=== PATIENT | female | born 1970 | race Caucasian/White ===

== ENCOUNTER 2020-08-11 16:05 | Inpatient (IN) ==
[2020-08-11 16:58] LABS: Basophils % 0.6 % (0.0-0.8); Eosinophils # 0.2 10*3/uL (0.0-0.87); Eosinophils % 2.2 % (0.00-10.9); Hematocrit 41.5 VOL% (35.7-47.0); Hemoglobin 12.8 GM/DL (12.0-16.0); Immature Granulocytes % 0.3 %; Immature Granulocytes Absolute 0.02 #; Lymphocytes # 1.9 10*3/uL (1.4-4.0); Lymphocytes % 26.7 % (21.3-54.2); Mean Corpuscular HGB Conc 30.8 GM/DL (32-36); Mean Corpuscular Volume 101.7 FL (87-102); Mean Platelet Volume 12.1 FL (9.6-12.0); Monocytes % 9.1 % (1.7-12.7); Neutrophils % 61.1 % (38.7-73.9); Platelet Count 222 T/CUMM (130-400); Red Blood Count 4.08 MC/CUMM (3.8-5.5); Red Cell Distribution Width 13.7 % (9.3-17.3); White Blood Count 6.9 T/CUMM (4-12)
[2020-08-11 17:09] LABS: INR 1.1; Partial Thromboplastin Time 34.4 SECS (23.9-33.8)
[2020-08-11 17:22] LABS: Bacteria,Urine Few /HPF (Few); Bilirubin,Urine Negative (Negative); Blood, Urine Small mg/dL (Negative); Glucose,Urine (UA) Negative (Negative); Ketones,Urine Negative (Negative); Nitrite,Urine Positive (Negative); Protein,Urine Negative; RBC,Urine 18 /HPF (0-4); Squamous Epithelial Cell,Urine Occasional /HPF (0-10); Urine Appearance CLOUDY (Clear); Urine Color Yellow (Yellow); Urine Specific Gravity 1.015 (1.001-1.035); Urine Urobilinogen < 2.0 EU/DL (0.2-1.0); WBC,Urine 1194 /HPF (0-6)
[2020-08-11 17:23] LABS: Alanine Aminotransferase 32 U/L (13-56); Albumin 3.2 G/DL (3.4-5.0); Alkaline Phosphatase 87 U/L (45-117); Aspartate Amino Transferase 38 U/L (0-37); Bilirubin,Total < 0.39 MG/DL (0.2-1.0); Blood Urea Nitrogen 41 MG/DL (7-18); Calcium 9.3 MG/DL (8.5-10.1); Carbon Dioxide 43 MMOL/L (21-32); Estimated Glom Filtration Rate 68 ML/MIN; Glucose 99 MG/DL (74-106); Osmolality,Calculated 284.7 MOS/KG (273-304); Potassium 3.9 MMOL/L (3.5-5.1); Sodium 138 MMOL/L (136-145); Total Protein 7.8 G/DL (6.4-8.3)
[2020-08-11 17:46] LABS: Barbiturates Screen,Urine Negative (Negative); Benzodiazepines Screen,Urine Positive (Negative); Cannabinoid Screen,Urine Negative (Negative); Opiate Screen,Urine Negative (Negative); Phencyclidine Screen,Urine Negative (Negative)
[2020-08-11 17:52] LABS: Troponin I < 0.015 NG/ML (0.00-0.045)
[2020-08-11 18:32] LABS: ABG Base Excess 15.7 MMOL/L (-2.5-2.5); ABG HCO3 39.4 MMOL/L (20-26); ABG Oxygen Saturation 87.4 % (95-100); ABG PH 7.369 (7.35-7.45); ABG PO2 58.6 MM HG (80-95); ABG TCO2 40.3 MMOL/L (23-27)
[2020-08-11 18:38] LABS: ABG PCO2 79.1 MM HG (35-48)
[2020-08-11] MEDS ORDERED: cefTRIAXone 1,000 MG in SODIUM CHLORIDE 0.9% 100 ML IV STA (18:39)
[2020-08-11] MEDS ORDERED: DEXTROSE 50% 25 GM/50 ML VIAL IV PRN ×2 (19:51→19:56)
[2020-08-11] MEDS ORDERED: GLUCAGON 1 MG VIAL IM PRN (19:51)
[2020-08-11] MEDS ORDERED: hydrALAZINE 20 MG/1 ML VIAL IV PRN (19:56)
[2020-08-11] MEDS ORDERED: NICOTINE 21 MG/24 HR PATCH TRANSDERM PRN (19:56)
[2020-08-11] MEDS ORDERED: ONDANSETRON 4 MG/2 ML VIAL IV PRN (19:56)
[2020-08-11] MEDS ORDERED: DOCUSATE SODIUM 100 MG CAPSULE PO PRN (19:56)
[2020-08-11] MEDS ORDERED: LACTULOSE 20 GM/30 ML UDCUP PO PRN (19:56)
[2020-08-11] MEDS ORDERED: BUDESONIDE/FORMOTEROL 80-4.5 INHALER 6.9 GM INH PRN (19:59)
[2020-08-11] MEDS ORDERED: ALBUTEROL SULFATE INH PRN (19:59)
[2020-08-11] MEDS ORDERED: ENOXAPARIN 30 MG/0.3 ML SYRINGE SUBCUT SCH (21:00)
[2020-08-11] MEDS ORDERED: ALBUTEROL 0.63 MG/3 ML NEB RESP TX SCH (23:00)
[2020-08-11] MEDS ORDERED: MELATONIN 3 MG TABLET PO PRN (23:04)
[2020-08-11 23:11] LABS: Alanine Aminotransferase 28 U/L (13-56); Albumin 3.1 G/DL (3.4-5.0); Alkaline Phosphatase 80 U/L (45-117); Aspartate Amino Transferase 26 U/L (0-37); Bilirubin,Total < 0.39 MG/DL (0.2-1.0); Blood Urea Nitrogen 36 MG/DL (7-18); Calcium 8.8 MG/DL (8.5-10.1); Carbon Dioxide 37 MMOL/L (21-32); Estimated Glom Filtration Rate 66 ML/MIN; Glucose 83 MG/DL (74-106); Osmolality,Calculated 285.4 MOS/KG (273-304); Potassium 3.7 MMOL/L (3.5-5.1); Sodium 140 MMOL/L (136-145); Total Protein 7.6 G/DL (6.4-8.3)
[2020-08-11] MEDS: methylPREDNISolone SOD SUC 40 MG/1 ML VIAL IV SCH (23:47)
[2020-08-11] MEDS: SODIUM CHLORIDE 0.9% 1,000 ML IV SCH (23:47)
[2020-08-11] MEDS: ACETAMINOPHEN 325 MG TABLET PO PRN (23:48)
[2020-08-12] MEDS: ALBUTEROL 2.5 MG/3 ML NEB RESP TX SCH ×4 (01:02→19:44)
[2020-08-12] MEDS: ACETAMINOPHEN 325 MG TABLET PO PRN (05:20)
[2020-08-12] MEDS: methylPREDNISolone SOD SUC 40 MG/1 ML VIAL IV SCH ×3 (05:21→21:09)
[2020-08-12 06:17] LABS: Basophils % 0.1 % (0.0-0.8); Eosinophils % 0.1 % (0.00-10.9); Hematocrit 44.5 VOL% (35.7-47.0); Hemoglobin 13.6 GM/DL (12.0-16.0); Immature Granulocytes % 0.4 %; Immature Granulocytes Absolute 0.03 #; Lymphocytes # 0.9 10*3/uL (1.4-4.0); Lymphocytes % 13.7 % (21.3-54.2); Mean Corpuscular HGB Conc 30.6 GM/DL (32-36); Mean Corpuscular Volume 101.8 FL (87-102); Mean Platelet Volume 11.8 FL (9.6-12.0); Monocytes % 1.5 % (1.7-12.7); Neutrophils % 84.2 % (38.7-73.9); Platelet Count 220 T/CUMM (130-400); Red Blood Count 4.37 MC/CUMM (3.8-5.5); Red Cell Distribution Width 13.5 % (9.3-17.3); White Blood Count 6.7 T/CUMM (4-12)
[2020-08-12 06:46] LABS: Risk Ratio 4.07
[2020-08-12 08:09] LABS: Calcium 9.3 MG/DL (8.5-10.1)
[2020-08-12] MEDS: DULoxetine 30 MG CAPSULE PO SCH (08:11)
[2020-08-12] MEDS: PANTOPRAZOLE 40 MG TABLET PO SCH (08:11)
[2020-08-12] MEDS: AZITHROMYCIN 250 MG TABLET PO SCH (08:11)
[2020-08-12] MEDS: amLODIPine 10 MG TABLET PO SCH (08:11)
[2020-08-12 08:27] LABS: ABG Base Excess 16.5 MMOL/L (-2.5-2.5); ABG HCO3 44.5 MMOL/L (20-26); ABG Oxygen Saturation 85.2 % (95-100); ABG PH 7.406 (7.35-7.45); ABG PO2 57.3 MM HG (80-95); ABG TCO2 46.7 MMOL/L (23-27)
[2020-08-12 08:29] LABS: ABG PCO2 72.5 MM HG (35-48)
[2020-08-12] MEDS ORDERED: APIXABAN 5 MG TABLET PO SCH (09:00)
[2020-08-12] MEDS: RIVAROXABAN 20 MG TABLET PO SCH (09:09)
[2020-08-12] MEDS: SODIUM CHLORIDE 0.9% 1,000 ML IV SCH (13:07)
[2020-08-12 16:44] LABS: Free T4 (Free Thyroxine) 0.55 NG/DL (0.76-1.46)
[2020-08-12] MEDS: QUEtiapine 100 MG TABLET PO SCH (21:09)
[2020-08-12] MEDS: cefTRIAXone 1,000 MG in SYRINGE 1 EACH IV SCH (21:10)
[2020-08-13] MEDS: ALBUTEROL 2.5 MG/3 ML NEB RESP TX SCH ×4 (00:47→19:03)
[2020-08-13] MEDS: SODIUM CHLORIDE 0.9% 1,000 ML IV SCH ×2 (02:52→15:49)
[2020-08-13] MEDS: methylPREDNISolone SOD SUC 40 MG/1 ML VIAL IV SCH ×3 (05:57→20:32)
[2020-08-13] MEDS: RIVAROXABAN 20 MG TABLET PO SCH (08:04)
[2020-08-13] MEDS: DULoxetine 30 MG CAPSULE PO SCH (08:04)
[2020-08-13] MEDS: PANTOPRAZOLE 40 MG TABLET PO SCH (08:05)
[2020-08-13] MEDS: amLODIPine 10 MG TABLET PO SCH (08:05)
[2020-08-13] MEDS: AZITHROMYCIN 250 MG TABLET PO SCH (08:05)
[2020-08-13 08:20] LABS: Basophils % 0.1 % (0.0-0.8); Eosinophils % 0.1 % (0.00-10.9); Hematocrit 41.2 VOL% (35.7-47.0); Hemoglobin 13.2 GM/DL (12.0-16.0); Immature Granulocytes % 0.5 %; Immature Granulocytes Absolute 0.05 #; Lymphocytes # 1.5 10*3/uL (1.4-4.0); Lymphocytes % 13.8 % (21.3-54.2); Mean Corpuscular Volume 97.4 FL (87-102); Mean Platelet Volume 11.5 FL (9.6-12.0); Monocytes % 2.5 % (1.7-12.7); Platelet Count 218 T/CUMM (130-400); Red Blood Count 4.23 MC/CUMM (3.8-5.5); Red Cell Distribution Width 13.4 % (9.3-17.3); White Blood Count 10.5 T/CUMM (4-12)
[2020-08-13 08:52] LABS: Osmolality,Calculated 280.7 MOS/KG (273-304); Potassium 3.3 MMOL/L (3.5-5.1)
[2020-08-13] MEDS ORDERED: INFLUENZA VIRUS VACCINE 0.5 ML SYRINGE IM ONE (09:00)
[2020-08-13] MEDS ORDERED: PNEUMOCOCCAL VACCINE (13 VALENT) 0.5 ML SYRINGE IM ONE (09:00)
[2020-08-13] MEDS: POTASSIUM CHLORIDE 20 MEQ TABLET PO PRN ×2 (13:32→15:11)
[2020-08-13 15:26] LABS: ABG Base Excess 11.6 MMOL/L (-2.5-2.5); ABG HCO3 35.3 MMOL/L (20-26); ABG Oxygen Saturation 92.4 % (95-100); ABG PCO2 52.3 MM HG (35-48); ABG PH 7.466 (7.35-7.45); ABG PO2 64.4 MM HG (80-95); ABG TCO2 32.8 MMOL/L (23-27); Allen Test Positive
[2020-08-13] MEDS: QUEtiapine 100 MG TABLET PO SCH (20:32)
[2020-08-13] MEDS: ZALEPLON 5 MG CAPSULE PO PRN (20:33)
[2020-08-13] MEDS: cefTRIAXone 1,000 MG in SYRINGE 1 EACH IV SCH (20:33)
[2020-08-13] MEDS: CARBOXYMETHYLCELLULOSE 1% OPH SOLN BOTH EYES PRN (20:34)
[2020-08-14] MEDS: ALBUTEROL 2.5 MG/3 ML NEB RESP TX SCH ×4 (00:50→19:10)
[2020-08-14 03:24] LABS: ABG Base Excess 9.5 MMOL/L (-2.5-2.5); ABG HCO3 33.2 MMOL/L (20-26); ABG Oxygen Saturation 94.2 % (95-100); ABG PCO2 58.2 MM HG (35-48); ABG PH 7.407 (7.35-7.45); ABG PO2 72.3 MM HG (80-95); Allen Test Positive; Pt O2 Delivery Device BIPAP
[2020-08-14 04:23] LABS: Basophils % 0.1 % (0.0-0.8); Hematocrit 41.4 VOL% (35.7-47.0); Hemoglobin 13.1 GM/DL (12.0-16.0); Immature Granulocytes % 0.8 %; Immature Granulocytes Absolute 0.09 #; Lymphocytes # 1.2 10*3/uL (1.4-4.0); Lymphocytes % 11.4 % (21.3-54.2); Mean Corpuscular HGB Conc 31.6 GM/DL (32-36); Mean Platelet Volume 12.2 FL (9.6-12.0); Monocytes % 2.9 % (1.7-12.7); Neutrophils % 84.8 % (38.7-73.9); Platelet Count 217 T/CUMM (130-400); Red Blood Count 4.18 MC/CUMM (3.8-5.5); Red Cell Distribution Width 13.7 % (9.3-17.3); White Blood Count 10.9 T/CUMM (4-12)
[2020-08-14] MEDS: methylPREDNISolone SOD SUC 40 MG/1 ML VIAL IV SCH ×3 (04:38→21:26)
[2020-08-14] MEDS: SODIUM CHLORIDE 0.9% 1,000 ML IV SCH (04:39)
[2020-08-14 04:48] LABS: Calcium 8.7 MG/DL (8.5-10.1); Osmolality,Calculated 283.4 MOS/KG (273-304); Potassium 3.9 MMOL/L (3.5-5.1)
[2020-08-14] MEDS: CARBOXYMETHYLCELLULOSE 1% OPH SOLN BOTH EYES PRN (06:15)
[2020-08-14] MEDS: DULoxetine 30 MG CAPSULE PO SCH (08:20)
[2020-08-14] MEDS: AZITHROMYCIN 250 MG TABLET PO SCH (08:20)
[2020-08-14] MEDS: PANTOPRAZOLE 40 MG TABLET PO SCH (08:20)
[2020-08-14] MEDS: amLODIPine 10 MG TABLET PO SCH (08:21)
[2020-08-14] MEDS: RIVAROXABAN 20 MG TABLET PO SCH (08:21)
[2020-08-14] MEDS: ceFAZolin 2,000 MG in PREMIX 1 EACH IV SCH ×2 (10:09→17:47)
[2020-08-14] MEDS: QUEtiapine 100 MG TABLET PO SCH (21:25)
[2020-08-14] MEDS: ZALEPLON 5 MG CAPSULE PO PRN (21:34)
[2020-08-15] MEDS: ALBUTEROL 2.5 MG/3 ML NEB RESP TX SCH ×4 (00:27→19:38)
[2020-08-15] MEDS: ceFAZolin 2,000 MG in PREMIX 1 EACH IV SCH ×3 (02:36→18:01)
[2020-08-15] MEDS: SODIUM CHLORIDE 0.9% 1,000 ML IV SCH ×4 (05:50→22:10)
[2020-08-15] MEDS: methylPREDNISolone SOD SUC 40 MG/1 ML VIAL IV SCH ×3 (05:51→20:19)
[2020-08-15 06:51] LABS: Basophils % 0.1 % (0.0-0.8); Hematocrit 42.3 VOL% (35.7-47.0); Hemoglobin 13.1 GM/DL (12.0-16.0); Immature Granulocytes % 0.9 %; Immature Granulocytes Absolute 0.09 #; Lymphocytes # 1.7 10*3/uL (1.4-4.0); Lymphocytes % 17.7 % (21.3-54.2); Mean Corpuscular Volume 99.5 FL (87-102); Monocytes % 3.7 % (1.7-12.7); Neutrophils % 77.6 % (38.7-73.9); Platelet Count 214 T/CUMM (130-400); Red Blood Count 4.25 MC/CUMM (3.8-5.5); Red Cell Distribution Width 13.4 % (9.3-17.3); White Blood Count 9.5 T/CUMM (4-12)
[2020-08-15 07:31] LABS: Calcium 8.9 MG/DL (8.5-10.1); Osmolality,Calculated 278.7 MOS/KG (273-304); Potassium 3.8 MMOL/L (3.5-5.1)
[2020-08-15] MEDS: POTASSIUM CHLORIDE 20 MEQ TABLET PO PRN (08:58)
[2020-08-15] MEDS: RIVAROXABAN 20 MG TABLET PO SCH (08:58)
[2020-08-15] MEDS: DULoxetine 30 MG CAPSULE PO SCH (08:59)
[2020-08-15] MEDS: PANTOPRAZOLE 40 MG TABLET PO SCH (08:59)
[2020-08-15] MEDS: AZITHROMYCIN 250 MG TABLET PO SCH (08:59)
[2020-08-15] MEDS: amLODIPine 10 MG TABLET PO SCH (08:59)
[2020-08-15] MEDS: QUEtiapine 100 MG TABLET PO SCH (20:18)
[2020-08-16] MEDS: ALBUTEROL 2.5 MG/3 ML NEB RESP TX SCH ×4 (00:41→19:40)
[2020-08-16] MEDS: ceFAZolin 2,000 MG in PREMIX 1 EACH IV SCH ×3 (02:46→17:03)
[2020-08-16] MEDS: methylPREDNISolone SOD SUC 40 MG/1 ML VIAL IV SCH ×3 (05:26→21:06)
[2020-08-16 05:38] LABS: Basophils % 0.1 % (0.0-0.8); Hemoglobin 13.5 GM/DL (12.0-16.0); Immature Granulocytes % 1.4 %; Immature Granulocytes Absolute 0.12 #; Lymphocytes # 1.3 10*3/uL (1.4-4.0); Lymphocytes % 15.7 % (21.3-54.2); Mean Corpuscular HGB Conc 32.1 GM/DL (32-36); Mean Corpuscular Volume 96.8 FL (87-102); Monocytes % 5.4 % (1.7-12.7); Neutrophils % 77.4 % (38.7-73.9); Platelet Count 213 T/CUMM (130-400); Red Blood Count 4.34 MC/CUMM (3.8-5.5); Red Cell Distribution Width 13.2 % (9.3-17.3); White Blood Count 8.5 T/CUMM (4-12)
[2020-08-16 05:49] LABS: Calcium 8.6 MG/DL (8.5-10.1); Osmolality,Calculated 283.4 MOS/KG (273-304)
[2020-08-16] MEDS: PANTOPRAZOLE 40 MG TABLET PO SCH (09:07)
[2020-08-16] MEDS: RIVAROXABAN 20 MG TABLET PO SCH (09:07)
[2020-08-16] MEDS: DULoxetine 30 MG CAPSULE PO SCH (09:07)
[2020-08-16] MEDS: AZITHROMYCIN 250 MG TABLET PO SCH (09:07)
[2020-08-16] MEDS: amLODIPine 10 MG TABLET PO SCH (09:07)
[2020-08-16] MEDS: SODIUM CHLORIDE 0.9% 1,000 ML IV SCH ×2 (12:08→17:07)
[2020-08-16] MEDS: QUEtiapine 100 MG TABLET PO SCH (21:03)
[2020-08-16] MEDS: ZALEPLON 5 MG CAPSULE PO PRN (21:27)
[2020-08-17] MEDS: ALBUTEROL 2.5 MG/3 ML NEB RESP TX SCH ×2 (00:39→07:25)
[2020-08-17] MEDS: ceFAZolin 2,000 MG in PREMIX 1 EACH IV SCH ×2 (00:45→09:21)
[2020-08-17] MEDS: SODIUM CHLORIDE 0.9% 1,000 ML IV SCH (03:43)
[2020-08-17 07:31] VITALS: BP 134/68
[2020-08-17] MEDS: methylPREDNISolone SOD SUC 40 MG/1 ML VIAL IV SCH (09:21)
[2020-08-17] MEDS: amLODIPine 10 MG TABLET PO SCH (09:22)
[2020-08-17] MEDS: DULoxetine 30 MG CAPSULE PO SCH (09:22)
[2020-08-17] MEDS: RIVAROXABAN 20 MG TABLET PO SCH (09:22)
[2020-08-17] MEDS: PANTOPRAZOLE 40 MG TABLET PO SCH (09:22)
[2020-08-18] MEDS ORDERED: CHOLECALCIFEROL 1,000 UNIT TABLET PO SCH (14:00)
== END 2020-08-17 11:49 | disposition home or self-care (01) | DRG 689 ==
LOC: EDUNIT# → EDBD → N.ED 16:05 → N.EDINP 19:51 → N.5E 20:48
PROVIDERS: ADMIT Internal Medicine; ATTEND Internal Medicine